=== PATIENT | female | born 1980 | race Caucasian/White ===

== ENCOUNTER 2016-09-09 08:57 | Emergency (ER) | payer MEDICARE, MEDICAID ==
[~2016-09-09] VITALS: Ht 162.6 cm; Wt 109.2 kg
[~2016-09-09 08:57] MED LIST: PREN1TAB60 PO
[2016-09-09] MEDS ORDERED: DIPHENHYDRAMINE 25 MG CAPSULE ONE (09:48)
[2016-09-09] MEDS ORDERED: DIPHENHYDRAMINE 25 MG CAPSULE PO ONE (10:00)
[2016-09-09 10:50] VITALS: BP 128/76
== END 2016-09-09 10:52 | disposition home or self-care (01) ==
LOC: ED 09:29
DX: T78.40XA Allergy, unspecified, initial encounter (principal); T50.905A Adverse effect of unspecified drugs, medicaments and biological substances, initial encounter; Y92.89 Other specified places as the place of occurrence of the external cause
CPT/HCPCS: 99282; Q0163

== ENCOUNTER 2016-10-15 14:40 | Outpatient (CLI) | payer MEDICARE, MEDICAID ==
[~2016-10-15] VITALS: Ht 157.5 cm; Wt 106.8 kg
[2016-10-15 15:30] VITALS: BP 109/65
== END 2016-10-15 17:05 | disposition home or self-care (01) ==
LOC: LDOP 14:40
PROVIDERS: ATTEND Obstetrics & Gynecology
DX: O09.522 Supervision of elderly multigravida, second trimester (principal); O26.892 Other specified pregnancy related conditions, second trimester; O10.912 Unspecified pre-existing hypertension complicating pregnancy, second trimester; O99.512 Diseases of the respiratory system complicating pregnancy, second trimester; J45.909 Unspecified asthma, uncomplicated; R10.9 Unspecified abdominal pain; Z3A.27 27 weeks gestation of pregnancy
CPT/HCPCS: 59025; 81001; 87086; 99211; G0463

== ENCOUNTER 2016-11-11 19:09 | Outpatient (CLI) | payer MEDICARE, MEDICAID ==
[~2016-11-11] VITALS: Ht 157.5 cm; Wt 106.8 kg
[2016-11-11 19:11] VITALS: BP 118/68
[2016-11-11 19:35] LABS: DAU SCREEN DISCLAIMER
== END 2016-11-11 22:10 | disposition home or self-care (01) ==
LOC: LDOP 19:09
PROVIDERS: ATTEND Obstetrics & Gynecology
DX: O09.523 Supervision of elderly multigravida, third trimester (principal); O26.893 Other specified pregnancy related conditions, third trimester; O99.213 Obesity complicating pregnancy, third trimester; O10.913 Unspecified pre-existing hypertension complicating pregnancy, third trimester; O99.513 Diseases of the respiratory system complicating pregnancy, third trimester; O23.43 Unspecified infection of urinary tract in pregnancy, third trimester; R10.31 Right lower quadrant pain; J45.909 Unspecified asthma, uncomplicated; R10.32 Left lower quadrant pain; Z3A.31 31 weeks gestation of pregnancy
CPT/HCPCS: 36415; 59025; 76815; 80307; 81001; 82731; 87086; 99211; G0463

== ENCOUNTER 2016-12-18 17:26 | Outpatient (CLI) | payer MEDICARE, MEDICAID ==
[~2016-12-18] VITALS: Ht 157.5 cm; Wt 106.3 kg
[2016-12-18 17:36] VITALS: BP 112/62
[2016-12-18] MEDS ORDERED: OXYcodone/APAP 5/325MG TABLET PO PRN (18:00)
[2016-12-18] MEDS ORDERED: OXYcodone/APAP 5/325MG TABLET ONE (18:02)
[2016-12-18 18:19] LABS: HEMATOCRIT 36.5 % (34.6-47.8); HEMOGLOBIN 12.5 g/dL (11.7-16.4); WHITE BLOOD COUNT 6.4 x10^3/uL (3.4-10)
[2016-12-18 18:29] LABS: ASPARTATE AMINO TRANSFERASE 21 U/L (15-37); BLOOD UREA NITROGEN 6 mg/dL (7-18)
== END 2016-12-18 20:16 | disposition home or self-care (01) ==
LOC: LDOP 17:26
PROVIDERS: ATTEND Obstetrics & Gynecology
DX: O09.523 Supervision of elderly multigravida, third trimester (principal); O26.893 Other specified pregnancy related conditions, third trimester; O99.513 Diseases of the respiratory system complicating pregnancy, third trimester; O10.913 Unspecified pre-existing hypertension complicating pregnancy, third trimester; R51 Headache; R10.9 Unspecified abdominal pain; J45.909 Unspecified asthma, uncomplicated; Z3A.36 36 weeks gestation of pregnancy
CPT/HCPCS: 36415; 59025; 80053; 81001; 82570; 84156; 84550; 85025; 99211; G0463

== ENCOUNTER 2016-12-24 19:14 | Inpatient (IN) | payer MEDICARE, MEDICAID ==
[~2016-12-24] VITALS: Ht 170.2 cm; Wt 109.0 kg
[2016-12-24 19:17] VITALS: BP 132/61
[2016-12-24] MEDS: LACTATED RINGERS 1,000 ML IV SCH (21:35)
[2016-12-24] MEDS ORDERED: NEWBORN KIT ONE (21:41)
[2016-12-24] MEDS ORDERED: OXYTOCIN 30U/ 0.9% NaCL 500ML 500 ML ONE (21:41)
[2016-12-24] MEDS ORDERED: OXYTOCIN 30U/ 0.9% NaCL 500ML 500 ML IV ONE (21:42)
[2016-12-24] MEDS: D5%-LACTATED RINGERS 1,000 ML IV SCH (21:42)
[2016-12-24] MEDS ORDERED: FENTANYL PF 100 MCG/2ML IV PRN (22:00)
[2016-12-24] MEDS ORDERED: ONDANSETRON 2MG/ML, 2ML IVPush PRN (22:00)
[2016-12-24] MEDS ORDERED: TERBUTALINE 1 MG/ML, 1ML IVPush PRN (22:00)
[2016-12-24] MEDS ORDERED: CALCIUM CARBONATE 500 MG TAB.CHEW PO PRN (22:00)
[2016-12-24 22:11] LABS: HEMATOCRIT 40.1 % (34.6-47.8); HEMOGLOBIN 13.6 g/dL (11.7-16.4); WHITE BLOOD COUNT 8.1 x10^3/uL (3.4-10)
[2016-12-24] MEDS ORDERED: FENTANYL PF 100 MCG/2ML ONE (22:49)
[2016-12-24] MEDS: FENTANYL PF 100 MCG/2ML IVPush PRN (22:53)
[2016-12-25] MEDS ORDERED: OXYTOCIN 30U/ 0.9% NaCL 500ML 500 ML IV PRN (05:25)
[2016-12-25] MEDS: LACTATED RINGERS 1,000 ML IV SCH ×2 (05:27→13:42)
[2016-12-25] MEDS: D5%-LACTATED RINGERS 1,000 ML IV SCH ×2 (05:42→13:42)
[2016-12-25] MEDS ORDERED: OXYTOCIN 30U/ 0.9% NaCL 500ML 500 ML ONE (08:47)
[2016-12-25] MEDS ORDERED: MISOPROSTOL 200 MCG TABLET ONE (08:47)
[2016-12-25] MEDS ORDERED: LIDOCAINE 1%, 20ML ONE ×2 (08:47→10:56)
[2016-12-25] MEDS ORDERED: FENTANYL PF 100 MCG/2ML ONE (08:50)
[2016-12-25] MEDS: FENTANYL PF 100 MCG/2ML IVPush PRN (08:52)
[2016-12-25] MEDS ORDERED: LIDOCAINE/PF 1.5%-EPI 1:200K, 30ML ONE ×2 (10:55→10:56)
[2016-12-25] MEDS ORDERED: FENTANYL/BUPIV./NS/PF 250 ML EPIDCONT ONE ×2 (10:55→10:56)
[2016-12-25] MEDS: OXYTOCIN 30U/ 0.9% NaCL 500ML 500 ML IV SCH ×10 (12:03→22:05)
[2016-12-25] MEDS ORDERED: ACETAMINOPHEN 325 MG TABLET PO PRN ×2 (12:30)
[2016-12-25] MEDS ORDERED: BISACODYL 10 MG SUPP PR PRN (12:30)
[2016-12-25] MEDS ORDERED: CALCIUM CARBONATE 500 MG TAB.CHEW PO PRN (12:30)
[2016-12-25] MEDS ORDERED: MISOPROSTOL 200 MCG TABLET PR PRN (12:30)
[2016-12-25] MEDS ORDERED: HYDROcodone/APAP 5/325 TABLET PO PRN (12:30)
[2016-12-25] MEDS ORDERED: ONDANSETRON 2MG/ML, 2ML IV PRN (12:30)
[2016-12-25] MEDS ORDERED: CARBOPROST TROMETHAMINE 250 MCG/ML, 1ML IM PRN (12:30)
[2016-12-25] MEDS ORDERED: CALCIUM CARBONATE 500 MG TAB.CHEW ONE (12:59)
[2016-12-25 13:45] VITALS: BP 116/72
[2016-12-25 16:34] VITALS: BP 116/72
[2016-12-25] MEDS ORDERED: LACTATED RINGERS 1,000 ML IV SCH (16:54)
[2016-12-25] MEDS ORDERED: FENTANYL/BUPIV./NS/PF 250 ML EPIDCONT SCH (16:54)
[2016-12-25] MEDS ORDERED: EPHEDRINE 50 MG/ML, 1ML IVPush PRN (17:00)
[2016-12-25] MEDS ORDERED: LACTATED RINGERS 1,000 ML IVBOLUS PRN (17:00)
[2016-12-25] MEDS ORDERED: NALOXONE 0.4 MG/ML, 1ML IVPush PRN (17:00)
[2016-12-25] MEDS: IBUPROFEN 600 MG TABLET PO PRN (17:28)
[2016-12-25 18:23] LABS: DAU SCREEN DISCLAIMER
[2016-12-25 19:44] LABS: HEMOGLOBIN 13.2 g/dL (11.7-16.4); WHITE BLOOD COUNT 11.9 x10^3/uL (3.4-10)
[2016-12-25] MEDS: DOCUSATE 100 MG CAPSULE PO PRN (20:07)
[2016-12-25] MEDS: HYDROcodone/APAP 5/325 TABLET PO PRN (20:07)
[2016-12-26 00:15] VITALS: BP 117/77
[2016-12-26 04:40] VITALS: BP 117/70
[2016-12-26] MEDS: IBUPROFEN 600 MG TABLET PO PRN ×3 (06:00→23:00)
[2016-12-26 08:00] VITALS: BP 111/70
[2016-12-26] MEDS: OXYTOCIN 30U/ 0.9% NaCL 500ML 500 ML IV SCH ×2 (08:03→18:03)
[2016-12-26] MEDS: PRENATAL VIT/IRON/FA 1 EACH TABLET PO SCH (09:00)
[2016-12-26 20:15] VITALS: BP 130/84
[2016-12-26] MEDS: DOCUSATE 100 MG CAPSULE PO PRN (22:59)
[2016-12-26] MEDS: HYDROcodone/APAP 5/325 TABLET PO PRN (22:59)
[2016-12-27 08:00] VITALS: BP 120/82
[2016-12-27] MEDS: PRENATAL VIT/IRON/FA 1 EACH TABLET PO SCH (08:42)
[2016-12-27] MEDS: DOCUSATE 100 MG CAPSULE PO PRN (08:42)
[2016-12-27] MEDS: IBUPROFEN 600 MG TABLET PO PRN (10:27)
[2016-12-27] MEDS ORDERED: IBUP-1222 PO (14:51)
[2016-12-27] MEDS ORDERED: HYDR-3240 PO (14:52)
[2016-12-27] MEDS ORDERED: DOCU-131 PO (14:53)
== END 2016-12-27 16:20 | disposition home or self-care (01) | DRG 775 ==
LOC: LDOP 19:14 → LDIP 21:17 → 2NW 12-25 13:38
PROVIDERS: ADMIT Obstetrics & Gynecology; ATTEND Obstetrics & Gynecology
PROC: 10D07Z6 Extraction of Products of Conception, Vacuum, Via Natural or Artificial Opening (ICD-10-PCS; principal; 2016-12-25)
PROC: 0KQM0ZZ Repair Perineum Muscle, Open Approach (ICD-10-PCS; 2016-12-25)
PROC: 3E033VJ Introduction of Other Hormone into Peripheral Vein, Percutaneous Approach (ICD-10-PCS; 2016-12-25)
PROC: 10907ZC Drainage of Amniotic Fluid, Therapeutic from Products of Conception, Via Natural or Artificial Opening (ICD-10-PCS; 2016-12-25)
PROC: 0U7C7ZZ Dilation of Cervix, Via Natural or Artificial Opening (ICD-10-PCS; 2016-12-25)
PROC: 3E0S3CZ (ICD-10-PCS; 2016-12-25)
PROC: 00HU33Z Insertion of Infusion Device into Spinal Canal, Percutaneous Approach (ICD-10-PCS; 2016-12-25)
DX: O76 Abnormality in fetal heart rate and rhythm complicating labor and delivery (principal); G43.909 Migraine, unspecified, not intractable, without status migrainosus; J45.909 Unspecified asthma, uncomplicated; Z37.0 Single live birth; O99.284 Endocrine, nutritional and metabolic diseases complicating childbirth; O99.52 Diseases of the respiratory system complicating childbirth; E78.00 Pure hypercholesterolemia, unspecified; Z3A.37 37 weeks gestation of pregnancy; O70.1 Second degree perineal laceration during delivery; Z91.410 Personal history of adult physical and sexual abuse; Z88.2 Allergy status to sulfonamides; Z88.0 Allergy status to penicillin; Z88.8 Allergy status to other drugs, medicaments and biological substances
CPT/HCPCS: 36415; 76819; 80307; 81001; 82803; 85025; 86850; 86900; 87086; J3010; J3490; G0479; J2590; J7120

== ENCOUNTER 2017-06-10 21:45 | Emergency (ER) | payer MEDICARE, MEDICAID ==
[~2017-06-10] VITALS: Ht 157.5 cm; Wt 106.0 kg
[~2017-06-10 21:45] MED LIST changes: +ALBU8.5H8 PO; +DOCU-131 PO; +HYDR-3240 PO; +IBUP-1222 PO
[2017-06-10 22:13] LABS: BASOPHILS # (AUTO) 0.04 x10^3/uL (0-0.1); BASOPHILS % (AUTO) 0 % (0-1); EOSINOPHILS # (AUTO) 0.07 x10^3/uL (0-0.4); EOSINOPHILS % (AUTO) 1 % (1-7); LYMPHOCYTES # (AUTO) 0.62 x10^3/uL (1-3.4); LYMPHOCYTES % (AUTO) 5 % (22-44); MD NO; MEAN CORPUSCULAR HEMOGLOBIN 31.1 pg (27.0-34.8); MEAN CORPUSCULAR HGB CONC 34.6 g/dL (32.4-35.8); MEAN CORPUSCULAR VOLUME 89.8 fL (80-100); MEAN PLATELET VOLUME 7.8 fL (7.4-10.4); MONOCYTES # (AUTO) 0.43 x10^3/uL (0.2-0.8); MONOCYTES % (AUTO) 3 % (2-9); NEUTROPHILS # (AUTO) 12.14 x10^3/uL (1.8-6.8); NEUTROPHILS % (AUTO) 91 % (42-75); PLATELET COUNT 259 x10^3/uL (130-400); RED BLOOD COUNT 5.12 x10^6/uL (3.82-5.3); RED CELL DISTRIBUTION WIDTH 12.6 % (9.6-15.2)
[2017-06-10] MEDS ORDERED: ONDANSETRON 2MG/ML, 2ML ONE (22:22)
[2017-06-10] MEDS ORDERED: NITROGLYCERIN SINGLE TAB 0.4 MG SL ONE (22:22)
[2017-06-10] MEDS ORDERED: ASPIRIN 81 MG TABLET CHEW ONE (22:22)
[2017-06-10 22:24] LABS: ALBUMIN 3.9 g/dL (3.4-5.0); ANION GAP 8 mmol/L (5-15); CALCIUM 8.8 mg/dL (8.5-10.1); CHLORIDE 105 mmol/L (98-107); CREATININE 0.81 mg/dL (0.55-1.02)
[2017-06-10 22:28] LABS: TROPONIN I < 0.015 ng/mL (0.000-0.045)
[2017-06-10] MEDS ORDERED: SODIUM CHLORIDE FLUSH 10ML SYR IVF ONE (22:30)
[2017-06-10] MEDS ORDERED: ASPIRIN 81 MG TABLET CHEW PO ONE (22:30)
[2017-06-10] MEDS ORDERED: ONDANSETRON ODT 4 MG PO ONE (22:30)
[2017-06-10] MEDS: NITROGLYCERIN SINGLE TAB 0.4 MG SL PRN ×2 (22:31→22:40)
[2017-06-10] MEDS ORDERED: MAALOX/HYOSCYAMINE/LIDOCAINE 45 ML BTL ONE (23:27)
[2017-06-10] MEDS ORDERED: MAALOX/HYOSCYAMINE/LIDOCAINE 45 ML BTL PO ONE (23:30)
[2017-06-11 01:50] LABS: TROPONIN I < 0.015 ng/mL (0.000-0.045)
[2017-06-11 02:03] VITALS: BP 132/87
[2017-06-11 02:19] LABS: ALBUMIN 3.8 g/dL (3.4-5.0); BILIRUBIN, DIRECT 0.2 mg/dL (0.1-0.2)
[2017-06-11 02:21] LABS: BILIRUBIN,INDIRECT 0.7 mg/dL (0.0-2.0); BILIRUBIN,TOTAL 0.9 mg/dL (0.2-1.0)
== END 2017-06-11 03:22 | disposition home or self-care (01) ==
LOC: ED 23:03
DX: R07.2 Precordial pain (principal); R10.12 Left upper quadrant pain; R10.13 Epigastric pain; I10 Essential (primary) hypertension; J45.909 Unspecified asthma, uncomplicated; Z87.891 Personal history of nicotine dependence
CPT/HCPCS: 36415; 71045; 76700; 80048; 80076; 82040; 83690; 84484; 85025; 93005; 99285; Q0162

== ENCOUNTER 2017-10-16 19:13 | Emergency (ER) | payer MEDICARE, MEDICAID ==
[~2017-10-16] VITALS: Ht 157.5 cm; Wt 109.1 kg
[2017-10-16 19:16] VITALS: BP 136/86
== END 2017-10-16 20:16 | disposition home or self-care (01) ==
LOC: ED 20:00
DX: M25.561 Pain in right knee (principal); M19.90 Unspecified osteoarthritis, unspecified site
CPT/HCPCS: 99284

== ENCOUNTER 2018-02-12 15:49 | Emergency (ER) | payer MEDICARE, MEDICAID ==
[~2018-02-12] VITALS: Ht 157.5 cm; Wt 112.3 kg
[2018-02-12] MEDS ORDERED: MAALOX/HYOSCYAMINE/LIDOCAINE 45 ML BTL PO ONE (17:30)
[2018-02-12] MEDS ORDERED: MAALOX/HYOSCYAMINE/LIDOCAINE 45 ML BTL ONE (17:30)
[2018-02-12 18:40] VITALS: BP 150/90
== END 2018-02-12 18:42 | disposition home or self-care (01) ==
LOC: ED 16:26
DX: R13.14 Dysphagia, pharyngoesophageal phase (principal); I10 Essential (primary) hypertension; J45.909 Unspecified asthma, uncomplicated
CPT/HCPCS: 70360; 74220; 99284

== ENCOUNTER 2018-03-22 15:48 | Emergency (ER) | payer MEDICARE, MEDICAID ==
[~2018-03-22] VITALS: Ht 157.5 cm; Wt 116.0 kg
[2018-03-22] MEDS ORDERED: ACETAMINOPHEN 500 MG TABLET ONE ×2 (16:13→16:30)
[2018-03-22] MEDS ORDERED: ACETAMINOPHEN 500 MG TABLET PO ONE (16:30)
[2018-03-22 16:40] LABS: RAPID INFLUENZA A POSITIVE (Negative); RAPID INFLUENZA B Negative (Negative)
[2018-03-22 16:44] LABS: BASOPHILS # (AUTO) 0.01 x10^3/uL (0-0.1); BASOPHILS % (AUTO) 0 % (0-1); EOSINOPHILS # (AUTO) 0.02 x10^3/uL (0-0.4); EOSINOPHILS % (AUTO) 0 % (1-7); LYMPHOCYTES # (AUTO) 0.69 x10^3/uL (1-3.4); LYMPHOCYTES % (AUTO) 12 % (22-44); MD NO; MEAN CORPUSCULAR HEMOGLOBIN 30.9 pg (27.0-34.8); MEAN CORPUSCULAR HGB CONC 33.8 g/dL (32.4-35.8); MEAN CORPUSCULAR VOLUME 91.4 fL (80-100); MEAN PLATELET VOLUME 8.2 fL (7.4-10.4); MONOCYTES # (AUTO) 0.47 x10^3/uL (0.2-0.8); MONOCYTES % (AUTO) 8 % (2-9); NEUTROPHILS # (AUTO) 4.73 x10^3/uL (1.8-6.8); NEUTROPHILS % (AUTO) 80 % (42-75); PLATELET COUNT 218 x10^3/uL (130-400); RED BLOOD COUNT 4.83 x10^6/uL (3.82-5.3); RED CELL DISTRIBUTION WIDTH 12.9 % (9.6-15.2)
[2018-03-22 16:53] LABS: ANION GAP 10 mmol/L (5-15); CHLORIDE 105 mmol/L (98-107); CREATININE 0.98 mg/dL (0.55-1.02)
[2018-03-22 16:54] LABS: ALBUMIN 3.7 g/dL (3.4-5.0)
[2018-03-22] MEDS ORDERED: KETOROLAC 30 MG/1 ML IM ONE (17:00)
[2018-03-22] MEDS ORDERED: KETOROLAC 30 MG/1 ML ONE (17:28)
[2018-03-22 17:38] VITALS: BP 132/78
== END 2018-03-22 17:56 | disposition home or self-care (01) ==
LOC: ED 16:53
DX: J09.X2 Influenza due to identified novel influenza A virus with other respiratory manifestations (principal); J31.0 Chronic rhinitis; I10 Essential (primary) hypertension; J45.909 Unspecified asthma, uncomplicated
CPT/HCPCS: 36415; 71046; 80048; 82040; 84703; 85025; 87400; 93005; 96372; 99284; J1885

== ENCOUNTER 2019-09-30 11:21 | Emergency (ER) | payer MEDICARE, MEDICAID ==
[~2019-09-30] VITALS: Ht 157.5 cm; Wt 110.0 kg
--- NOTE | 2019-09-30 11:27 | NUR ---
jorgito. report received from [facility]. pt c/o painful urination/blood in urine/bilateral flank pain/fatigue x 2 days. denies any other symptoms. pt's aox4. resps even and unlabored. denies abd pain/cough/sob/n/v/d. bp/spo2 monitors in place. call light within reach.
--- NOTE | 2019-09-30 11:29 | NUR ---
pt amb to br with steady gait. urine cup given.
--- NOTE | 2019-09-30 11:39 | NUR ---
TASK RN: VITALS UPDATED FOR TRIAGE, UA SENT TO LAB FOR ANALYSIS
[2019-09-30 12:01] LABS: MICROSCOPIC INDICATED
[2019-09-30] MEDS ORDERED: HYDROmorphone 1 MG/ML, 1ML INJ ONE (12:13)
--- NOTE | 2019-09-30 12:18 | NUR ---
pt medicated per [facility]. pt tolerated well. pt's aox4. resps even and unlabored.
[2019-09-30] MEDS ORDERED: HYDROmorphone 2 MG/ML, 1ML IM PRN (12:30)
[2019-09-30] MEDS ORDERED: CEFTRIAXONE 1,000 MG ONE (12:41)
[2019-09-30 12:42] LABS: BASOPHILS # (AUTO) 0.02 x10^3/uL (0-0.1); BASOPHILS % (AUTO) 0 % (0-1); EOSINOPHILS # (AUTO) 0.09 x10^3/uL (0-0.4); EOSINOPHILS % (AUTO) 1 % (1-7); LYMPHOCYTES # (AUTO) 0.92 x10^3/uL (1-3.4); LYMPHOCYTES % (AUTO) 7 % (22-44); MD NO; MEAN CORPUSCULAR HEMOGLOBIN 31.5 pg (27.0-34.8); MEAN CORPUSCULAR HGB CONC 34.3 g/dL (32.4-35.8); MEAN CORPUSCULAR VOLUME 91.9 fL (80-100); MEAN PLATELET VOLUME 7.9 fL (7.4-10.4); MONOCYTES # (AUTO) 0.36 x10^3/uL (0.2-0.8); MONOCYTES % (AUTO) 3 % (2-9); NEUTROPHILS # (AUTO) 12.18 x10^3/uL (1.8-6.8); NEUTROPHILS % (AUTO) 90 % (42-75); PLATELET COUNT 249 x10^3/uL (130-400); RED CELL DISTRIBUTION WIDTH 12.9 % (9.6-15.2)
[2019-09-30 12:50] LABS: ALANINE AMINOTRANSFERASE 33 U/L (12-78); ALBUMIN 3.6 g/dL (3.4-5.0); ANION GAP 4 mmol/L (5-15); CALCIUM 8.4 mg/dL (8.5-10.1); CHLORIDE 105 mmol/L (98-107)
[2019-09-30 12:57] LABS: ALKALINE PHOSPHATASE 84 U/L (45-117); BILIRUBIN,TOTAL 1.5 mg/dL (0.2-1.0); CREATININE 0.82 mg/dL (0.55-1.02); TOTAL PROTEIN 7.7 g/dL (6.4-8.2)
[2019-09-30] MEDS ORDERED: CEFTRIAXONE 1,000 MG IM ONE (13:00)
--- NOTE | 2019-09-30 13:05 | NUR ---
PT MEDICATED WITH IM ROCEPHIN.
--- NOTE | 2019-09-30 13:51 | NUR ---
PT AMB TO BR AND BACK TO ROOM WITH STEADY GAIT.
--- NOTE | 2019-09-30 14:04 | NUR ---
this tech assisted pt to restroom. slow, but steady gait.
[2019-09-30 15:01] VITALS: BP 122/73
--- NOTE | 2019-09-30 15:01 | NUR ---
Patient given discharge instructions and they have confirmed that they understand the instructions. Patient ambulatory with steady gait. TAXI VOUCHER GIVEN AT [facility].
== END 2019-09-30 15:02 | disposition home or self-care (01) ==
LOC: ED 11:51
DX: N30.01 Acute cystitis with hematuria (principal); R30.0 Dysuria; M54.5 Low back pain; R10.9 Unspecified abdominal pain; I10 Essential (primary) hypertension; J45.909 Unspecified asthma, uncomplicated; M19.90 Unspecified osteoarthritis, unspecified site
CPT/HCPCS: 36415; 74176; 80053; 81001; 84703; 85025; 87086; 96372; 99284; J0696; J1170